=== PATIENT | male | born 2000 | race African-American/Black ===

== ENCOUNTER 2025-06-26 07:11 | Emergency (ER) | payer MEDICAID, OTHER ==
[~2025-06-26] VITALS: Ht 182.9 cm; Wt 104.3 kg
[2025-06-26 07:25] VITALS: BP 145/45; O2SAT 95
[2025-06-26 07:57] LABS: PLATELET COUNT (AUTO) 241 K/uL (152-348); RED BLOOD CELL COUNT(AUTO) 5.01 MIL/uL (4.06-5.63); RED CELL DISTRIBUTION WIDTH 12.9 % (12.1-16.2); WHITE BLOOD COUNT (AUTO) 13.8 K/uL (3.6-10.2)
[2025-06-26] MEDS ORDERED: METOCLOPRAMIDE HCL 10 MG/2 ML VIAL ONE (08:04)
[2025-06-26] MEDS ORDERED: PANTOPRAZOLE SODIUM 40 MG VIAL ONE (08:04)
[2025-06-26 08:06] LABS: CREATININE 1.0 mg/dL (0.6-1.3); SODIUM SERUM 140.0 mmol/L (136-145); UREA NITROGEN, BLOOD 4.0 mg/dL (7-18)
[2025-06-26 08:12] LABS: ASPARTATE AMINOTRANSFERASE 11.0 U/L (15-37); TOTAL PROTEIN, SERUM 8.2 g/dL (6.4-8.2)
[2025-06-26] MEDS: IV NORMAL SALINE 1000 ML BAG IV ONE (08:12)
[2025-06-26] MEDS: METOCLOPRAMIDE HCL 10 MG/2 ML VIAL IV ONE (08:12)
[2025-06-26] MEDS: PANTOPRAZOLE SODIUM 40 MG VIAL IV ONE (08:12)
[2025-06-26] MEDS ORDERED: SWABABLE VALVE TRANSFER SET EA MC ONE (08:45)
[2025-06-26] MEDS ORDERED: IOHEXOL 300MG/ML 100 ML INFUS..BTL ONE (08:45)
[2025-06-26] MEDS ORDERED: IV NORMAL SALINE 250 ML IV ONE (08:45)
[2025-06-26] MEDS ORDERED: PANT40TA49 PO (10:12)
[2025-06-26] MEDS ORDERED: METO-295 PO (10:12)
[2025-06-26 10:32] VITALS: BP 130/88
== END 2025-06-26 10:33 | disposition home or self-care (01) ==
LOC: ER 07:11
DX: K29.00 Acute gastritis without bleeding (principal); R11.2 Nausea with vomiting, unspecified; F17.200 Nicotine dependence, unspecified, uncomplicated; J45.909 Unspecified asthma, uncomplicated; Z79.899 Other long term (current) drug therapy
CPT/HCPCS: 36415; 71045; 83690; 85025; A4606; A4663; J2470; J2765; J7040; Q9967